=== PATIENT | female | born 1955 | race Caucasian/White ===

== ENCOUNTER → 2017-05-09 | Outpatient (CLI) | payer BC, OTHER ==
[~2017-05-09] MED LIST: CYMBALTA30 MG PO; DARVOCET-N 1001 TA1 DOB
--- NOTE | ~2017-05-09 | US6 ---
[facility] A Service of [facility] RADIOLOGY TEXT RESULTS PATIENT: CASEY WALDROP LOCATION: [facility] : 51 UNIT #: [id number] AGE: [address]: Maranda Arciniega MD SEX: F ORDER DR: [id number] [facility] [address] [facility] [place], [place] [address] [id number] O MR#: [id number] Acc #: [id number] NAME: CASEY WALDROP : 1955 SEX: F STUDY DATE/TIME: 05/09/2017 9:56 UNIT: [facility] ROOM: STUDY DESCRIPTION: US Abdominal Limited Attending Physician: Maranda Arciniega M.D. Ordering Physician: Maranda Arciniega M.D. Primary Care Physician: Maranda Arciniega M.D. MEDICAL IMAGING REPORT This report is preliminary unless electronic signature is present EXAM Right upper quadrant ultrasound HISTORY Abnormal elevated liver function tests. TECHNIQUE Singh-scale and color Doppler sonographic images were obtained through the right upper quadrant. FINDINGS Visualized portions of the pancreas appear normal. Liver measures within normal size limits. The parenchyma does appear somewhat heterogeneous. Main portal vein is patent with hepatopetal flow. There is no intra- or extrahepatic biliary dilatation. I do not see any focal hepatic lesions. The gallbladder appears normal. No stones or sludge are identified. There is no gallbladder wall thickening or pericholecystic fluid. No hydronephrosis is seen. No solid or cystic renal masses. IMPRESSION Patient does have heterogeneous liver parenchyma, however no focal hepatic lesions are seen. Remainder of the study appears unremarkable. Dictated by... Felicita Montero M.D. THIS IS AN ELECTRONICALLY VERIFIED REPORT Felicita Montero M.D. at 05/09/2017 4:59 PM AFF/pcl TD: 05/09/2017 16:06 JOB #: [id number] [facility] A Service of [facility] RADIOLOGY TEXT RESULTS PATIENT: CASEY WALDROP LOCATION: [facility] : 51 UNIT #: [id number] AGE: [address]: Maranda Arciniega MD SEX: F ORDER DR: MEDICAL IMAGING REPORT Page 1 of 1 COPY
== END | disposition home or self-care (01) ==
LOC: CWCC 05-01 08:00
DX: R94.5 Abnormal results of liver function studies (principal)
CPT/HCPCS: 76705